=== PATIENT | female | born 1985 ===

== ENCOUNTER 2016-10-25 17:17 | Emergency (ER) | payer MEDICAID ==
[2016-10-25 17:26] VITALS: BP 134/79; PULSE 90; RESP 16; TEMP 98; O2SAT 100
--- NOTE | 2016-10-25 18:17 | ED PDOC ---
Lower Extremity Pain/Injury Time Seen by Provider: 10/25/16 17:30 Chief Complaint (Nursing): Lower Extremity Problem/Injury Chief Complaint (Provider): Right Calf Pain History Per: Patient History/Exam Limitations: no limitations Onset/Duration Of Symptoms: Days (since yesterday), Worse Since (onset) Current Symptoms Are (Timing): Still Present Severity: Moderate Pain Scale Rating Of: 8 Additional Complaint(s): Karuna Yee is a 31 year old female, with no pertinent past medical history, who presents to the ED on 10/25/16 for the evaluation of moderate right calf pain that she has experienced since yesterday; currently rated at an 8/10 with radiation both up into her knee and down into her right foot. Patient states that she was walking at home when she had felt a small "pop" to right calf region, since then experiencing a pain further described as something "pulling" on her muscle. She is still capable of unassisted ambulation, though she notes pain to be worse since onset; prompting ED visit. Has medicated with Tramadol ( last night) with mild relief, prescribed to her 5-6 months ago after she had "pulled a tendon" within her right foot. PMD: Melissa Escamilla Past Medical History Reviewed: Historical Data, Nursing Documentation, Vital Signs Vital Signs: Last Vital Signs Temp 98.0 F 10/25/16 17:22 Pulse 90 10/25/16 17:22 Resp 16 10/25/16 17:22 BP 134/79 10/25/16 17:22 Pulse Ox 100 10/25/16 17:22 - Medical History PMH: Asthma - Surgical History Surgical History: No Surg Hx - Family History Family History: States: No Known Family Hx - Social History Current smoker - smoking cessation education provided: Yes (cigarettes) Alcohol: None Drugs: Denies - Immunization History Hx Tetanus Toxoid Vaccination: No Hx Influenza Vaccination: No Hx Pneumococcal Vaccination: No (unsure) - Home Medications Home Medications: Ambulatory Orders Medication Instructions Recorded Albuterol HFA [Ventolin HFA 90 2 puff IH [id number] 07/04/15 mcg/actuation (8 g)] Cyclobenzaprine HCl [Flexeril] 1 tab PO TID PRN #25 tab 07/04/15 Naproxen [Naprosyn] 1 tab PO BID PRN #25 tab 07/04/15 Cyclobenzaprine [Cyclobenzaprine 10 mg PO TID PRN #20 tab 10/25/16 HCl] Naproxen [Naprosyn] 500 mg PO BID #20 tab 10/25/16 - Allergies Allergies/Adverse Reactions: Allergies Allergy/AdvReac Type Severity Reaction Status Date / Time No Known Allergies Allergy Verified 07/04/15 17:32 Review of Systems Musculoskeletal: Positive for: Leg Pain (right calf w/radiation to knee and foot ) Physical Exam - Reviewed Nursing Documentation Reviewed: Yes Vital Signs Reviewed: Yes - Physical Exam Appears: Positive for: Non-toxic, No Acute Distress Extremity: Positive for: Normal ROM (FROM of right knee/ankle/toes of right foot ), Calf Tenderness (mild, right calf), Swelling (mild, right calf; no swelling noted to right foot). Negative for: Tenderness (nontender right foot), Deformity Neurologic/Psych: Positive for: Alert, Oriented - Laboratory Results Urine POC: Negative - ECG O2 Sat by Pulse Oximetry: 100 (RA) Pulse Ox Interpretation: Normal - Other Rad Doppler right leg X-Ray: Read By Radiologist X-Ray Interpretation: no DVT Medical Decision Making Medical Decision Makin:30 Initial Impression: right calf pain Initial Plan: * Duplex LE Vein, Right * Upreg * Toradol 60mg IM * Flexeril 10mg PO * Reevaluation US negative. Patient feels much better after meds given. Esequiel wrap applied to right calf region, crutches declined. Prescriptions given for Naprosyn and Flexeril. Patient was advised to follow-up with orthopedist in 2-3 days, referral provided. Scribe Attestation: Documented by Shala Hernández, acting as a scribe for Mireya De Leon PA-C. Provider Scribe Attestation: All medical record entries made by the Scribe were at my direction and personally dictated by me. I have reviewed the chart and agree that the record accurately reflects my personal performance of the history, physical exam, medical decision making, and the department course for this patient. I have also personally directed, reviewed, and agree with the discharge instructions and disposition. Disposition - Clinical Impression Clinical Impression: Strain of calf muscle - Patient ED Disposition Is Patient to be Admitted: No Counseled Patient/Family Regarding: Studies Performed, Diagnosis, Need For Followup, Rx Given - Disposition Referrals: Jm Ford MD [Staff Provider] - Disposition: Routine/Home Disposition Time: 20:42 Condition: IMPROVED Additional Instructions: Ice, rest and elevate affected area. Take prescription meds as directed as needed for pain. Follow-up with orthopedist for any persistent symptoms. Prescriptions: Cyclobenzaprine [Cyclobenzaprine HCl] 10 mg PO TID PRN #20 tab PRN Reason: Muscle Spasm Naproxen [Naprosyn] 500 mg PO BID #20 tab Instructions: Muscle Strain (ED)
--- NOTE | 2016-10-25 20:21 | US ---
EXAM: US Duplex Right Lower Extremity Veins CLINICAL HISTORY: 31 years old, female; Pain; Leg, lower; Right; Additional info: Calf pain, injury TECHNIQUE: Real-time ultrasound scan of the veins of the right lower extremity with color Doppler flow, spectral waveform analysis and compression. EXAM DATE/TIME: 10/25/2016 5:53 PM COMPARISON: No relevant prior studies available. FINDINGS: Normal-appearing compressibility and flow are seen in the right common femoral, femoral, popliteal and posterior tibial veins. There is also normal augmentation response in the right common femoral, femoral and popliteal veins. IMPRESSION: No evidence of deep venous thrombosis in the right leg.
== END 2016-10-25 22:06 | disposition home or self-care (01) ==
LOC: H.ER 17:17
DX: S86.811A Strain of other muscle(s) and tendon(s) at lower leg level, right leg, initial encounter (principal); X50.9XXA Other and unspecified overexertion or strenuous movements or postures, initial encounter; Y92.410 Unspecified street and highway as the place of occurrence of the external cause; F17.200 Nicotine dependence, unspecified, uncomplicated; J45.909 Unspecified asthma, uncomplicated